=== PATIENT | male | born 1970 | race African-American/Black ===

== ENCOUNTER → 2024-06-04 15:23 | Outpatient (REF) | payer BC, SELFPAY ==
[2024-06-05 15:11] LABS: ALT (SGPT) 22 U/L (0-50); AST (SGOT) 26 U/L (17-59); Albumin 4.6 g/dl (3.5-5.0); Alkaline Phosphatase 170 U/L (38-126); Blood Urea Nitrogen 68 mg/dl (9-20); Calcium 9.1 mg/dl (8.4-10.2); Carbon Dioxide 8 mmol/L (22-30); Chloride 115 mmol/L (98-107); Glucose 87 mg/dl (70-99); Potassium 6.5 mmol/L (3.5-5.1); Sodium 140 mmol/L (135-145); Total Bilirubin 0.5 mg/dl (0.2-1.3); Total Protein 7.7 g/dl (6.3-8.2); eGFR 6.04
== END ==
LOC: RAD 15:23
PROVIDERS: ATTENDING PHYSICIAN Student in an Organized Health Care Education/Training Program; FAMILY PHYSICIAN Family Medicine; OTHER PHYSICIAN Internal Medicine
DX: R10.11 Right upper quadrant pain (principal); I10 Essential (primary) hypertension
CPT/HCPCS: 36415; 80053